=== PATIENT | male | born 2000 | race Caucasian/White ===

== ENCOUNTER 2019-08-07 02:13 | Emergency (ER) | payer SELFPAY ==
[~2019-08-07 02:13] MED LIST: MIDAZOLAM HCL 2 MG/2 ML INJ ONE; NA CHLORIDE 0.9% 1,000 ML ONE; ROCURONIUM 50 MG/5 ML VIAL IV ONE; RSI MEDICATION KIT IV ONE; propofoL 1,000 MG/100 ML VIAL IV ONE
[2019-08-07] MEDS ORDERED: ETOMIDATE 20 MG/10 ML VIAL IV ONE (02:14)
[2019-08-07] MEDS ORDERED: SUCCINYLCHOLINE 20 MG/ML (10 ML) IV ONE (02:14)
[2019-08-07] MEDS ORDERED: ROCURONIUM 50 MG/5 ML VIAL IV ONE ×2 (02:20→03:24)
[2019-08-07 03:01] LABS: Absolute Lymphocytes (CBC) 2.2 K/uL (0.7-4.9); Basophils % 0.7 % (0-1.3); Lymphocytes % 23.3 % (15.3-44.8); MPV 7.9 fL (7.6-11.3)
[2019-08-07 03:12] LABS: Protime INR 0.93
[2019-08-07] MEDS ORDERED: NA CHLORIDE 0.9% 1,000 ML ONE (03:17)
[2019-08-07] MEDS ORDERED: FENTANYL CITR 100 MCG/2 ML ONE (03:24)
[2019-08-07 03:30] LABS: ALT/SGPT 65 U/L (12-78); AST/SGOT 50 U/L (15-37); Albumin 3.8 g/dL (3.4-5.0); Alkaline Phosphatase 128 U/L (45-117); BUN Blood Urea Nitrogen 14 mg/dL (7-18); Bicarbonate 22 mmol/L (21-32); Bilirubin Direct 0.1 mg/dL (0-0.2); Bilirubin Total 0.2 mg/dL (0.2-1.0); Glucose Level 146 mg/dL (74-106); Potassium 3.5 mmol/L (3.5-5.1); Protein, Total 7.4 g/dL (6.4-8.2); Sodium Level 142 mmol/L (136-145)
[2019-08-07 03:57] LABS: Urine Blood NEGATIVE (NEG); Urine Glucose NEGATIVE (NEG); Urine Protein NEGATIVE (NEG)
[2019-08-07 04:02] LABS: Barbiturates NEGATIVE (NEGATIVE); Benzodiazepines NEGATIVE (NEGATIVE); Cocaine NEGATIVE (NEGATIVE); METHAMPHETAM NEGATIVE (NEGATIVE); Methadone NEGATIVE (NEGATIVE); Opiates NEGATIVE (NEGATIVE); Phencyclidine NEGATIVE (NEGATIVE); THC Cannibis NEGATIVE (NEGATIVE)
--- NOTE | 2019-08-07 07:12 | EDPHYS ---
Physician Documentation [facility] Name: Tao Cintron Age: 18 yrs Sex: Male : 2000 Arrival Date: 08/07/2019 Time: 02:15 Bed 3 Private MD: ED Physician Maverick Mccartney HPI: 08/07 02:40 This 18 yrs old Male presents to ER via Unassigned with complaints of Head kdr Injury-Adult. 05:20 This 18 yrs old Male presents to ER via EMS with complaints of Head kdr Injury-Adult. 02:40 The patient or guardian reports abrasion, deformity, injury, pain, swelling, kdr tenderness. The complaints affect the forehead, right ear, right restorationism, right frontal area, right side of forehead and right eye. Context of injury: The problem was sustained at At an apartment complex on the third floor. He was reported by PD to have been banging his head on the door of an apartment that apparently was not his. It was unknown how long he had been doing this. Onset: The symptoms/episode began/occurred at an unknown time. Associated signs and symptoms:. Severity of symptoms: At their worst the symptoms were moderate, severe, incapacitating. 05:20 It is unknown whether or not the patient has had similar symptoms in the past. It is kdr unknown whether or not the patient has recently seen a physician. - Immunization history:: Adult Immunizations unknown. - Ebola Screening: : No symptoms or risks identified at this time. - Social history:: Smoking status: unknown. ROS: 05:20 Constitutional: Unable to assess kdr 05:20 Unable to obtain ROS due to obtunded state. Exam: 05:20 Constitutional: This is a well developed, well nourished patient who is awake, very kdr aggitated and verbally abusive/loud. He does not respond to most general questions about his current state but does state his name. Otherwise, he he mostly shouting 05:20 Neck: Trachea midline, no thyromegaly or masses palpated, and no cervical lymphadenopathy. Supple, full range of motion without nuchal rigidity, or vertebral point tenderness. No Meningismus. Chest/axilla: Normal chest wall appearance and motion. Nontender with no deformity. No lesions are appreciated. Cardiovascular: Regular rate and rhythm with a normal S1 and S2. No gallops, murmurs, or rubs. Normal PMI, no JVD. No pulse deficits. Respiratory: Lungs have equal breath sounds bilaterally, clear to auscultation and percussion. No rales, rhonchi or wheezes noted. No increased work of breathing, no retractions or nasal flaring. Abdomen/GI: Soft, non-tender, with normal bowel sounds. No distension or tympany. No guarding or rebound. No evidence of tenderness throughout. Back: No spinal tenderness. No costovertebral tenderness. Full range of motion. Skin: Warm, dry with normal turgor. Normal color with no rashes, no lesions, and no evidence of cellulitis. MS/ Extremity: Pulses equal, no cyanosis. Neurovascular intact. Full, normal range of motion. 05:20 Head/face: Noted is abrasion(s), that are moderate, of the forehead, right eye, right cheek, right ear, right restorationism, right frontal area, right temporal area and right side of forehead. 05:20 Neuro: The patient appears to be under the influence of mind altering substances. It is unclear what he may have been exposed to.. Vital Signs: 02:15 BP 125 / 84; Pulse 102; Resp 20; Pulse Ox 100% on R/A; Weight 106.59 kg; lp1 02:20 BP 127 / 81; Pulse 105; Resp 21; Pulse Ox 100% on BVM; lp1 02:45 BP 152 / 90; Pulse 122; Resp 15; Pulse Ox 100% on ETT vent; lp1 03:00 BP 138 / 80; Pulse 112; Resp 20; Temp 96.1(C); Pulse Ox 100% on 60% FiO2 ETT vent; lp1 03:46 BP 99 / 45; Pulse 88; Resp 15; Temp 97; Pulse Ox 100% on ETT vent; ea 04:50 BP 110 / 65; Pulse 92; Resp 18; Pulse Ox 100% on ETT vent; ea 05:55 BP 108 / 60; Pulse 92; Resp 18; Temp 97.9; Pulse Ox 100% on ETT vent; ea Aurora Coma Score: 02:20 Eye Response: spontaneous(4). Verbal Response: confused(4). Motor Response: localizes lp1 pain(5). Total: 13. 02:40 Eye Response: spontaneous(4). Verbal Response: inappropriate words(3). Motor Response: kdr localizes pain(5). Total: 12. Procedures: 05:20 Intubation: Ventilated with 100% NRB prior to procedure. O2 saturation prior to kdr procedure was 100 %. Intubated orally using # 3 Rose blade with 7.5 mm ETT. was successful on first attempt. Ventilated with Ambu bag. Tube secured with ETT lares Placement verified by CXR, CO2 detector with (+) color change, auscultating bilateral breath sounds, O2 saturation after procedure was 95 %. Patient tolerated well. MDM: 05:20 Data reviewed: vital signs, nurses notes, lab test result(s), EKG, radiologic studies. kdr ED course: Due to the patient's agitated state, he was proactively intubated to protect himself, the staff and to allow for the safe and expeditious testing including CT scan. 07:10 Patient medically screened. kdr 07:11 ED course: The patient was extubated without difficulty or complication. He continues kdr to be uncooperative with staff. [employer] was contacted since the patient was unable to give any contact/family information. Once the PD arrived, the patient was considerably more awake and cooperative.. 08/07 02:18 Order name: Acetaminophen lp08/07 02:18 Order name: BMP lp08/07 02:18 Order name: CBC with Diff lp08/07 02:18 Order name: Ethanol lp08/07 02:18 Order name: Hepatic Function lp1 08/07 02:18 Order name: Protime (+inr) lp1 08/07 02:18 Order name: CT Head C Spine lp08/07 02:18 Order name: Ptt, Activated lp08/07 02:18 Order name: Salicylate lp1 08/07 02:18 Order name: Urine Drug Screen lp08/07 02:27 Order name: Chest Single View XRAY snw 08/07 03:32 Order name: Urine Dipstick--Ancillary (enter results) ar5 08/07 02:18 Order name: Intubation Setup; Complete Time: 03:13 lp1 08/07 02:18 Order name: EKG; Complete Time: 02:19 lp1 08/07 02:18 Order name: EKG - Nurse/Tech; Complete Time: 04:27 lp1 01 02:18 Order name: IV Saline Lock; Complete Time: 03:13 08/07 02:18 Order name: Labs collected and sent; Complete Time: 03:13 08/07 02:18 Order name: O2 Per Protocol; Complete Time: 03:13 08/07 02:18 Order name: O2 Sat Monitoring; Complete Time: 03:13 08/07 02:18 Order name: Urine Dipstick-Ancillary (obtain specimen); Complete Time: 03:13 08/07 02:18 Order name: Nash; Complete Time: 03:13 lp08/07 02:18 Order name: NG Tube; Complete Time: 03:13 lp1 Administered Medications: 02:11 Drug: Etomidate 20 mg Route: IVP; Site: right antecubital; lp1 02:15 Follow up: Response: No adverse reaction lp1 02:11 Drug: Succinylcholine 100 mg Route: IVP; Site: right antecubital; lp1 02:15 Follow up: Response: No adverse reaction lp1 02:12 Drug: NS 0.9% 1000 ml Route: IV; Rate: 1000 ml; Site: right antecubital; lp1 03:17 Follow up: IV Status: Completed infusion; IV Intake: 1000ml lp1 02:14 Drug: Rocuronium 50 mg Route: IVP; Site: right antecubital; lp1 02:15 Follow up: Response: No adverse reaction lp1 03:17 Drug: NS 0.9% 1000 ml Route: IV; Rate: 125 ml/hr; Site: right antecubital; lp1 03:30 Drug: Rocuronium 50 mg Route: IVP; Site: left antecubital; ea 03:45 Follow up: Response: No adverse reaction ea 03:31 Drug: fentaNYL (PF) 50 mcg Route: IVP; Site: left antecubital; ea 03:45 Follow up: Response: No adverse reaction ea Disposition: 08/07/19 07:10 Discharged to Home. Impression: Other specified injuries of head, Unspecified injury of head, Right facial abrasion/contusion, Alcohol intoxication. - Condition is Stable. - Discharge Instructions: Alcohol Intoxication, [id number], Contusion, Rxty-mr-Bgei, Abrasion, Iuiu-xa-Nwwg, Head Injury, Adult, Keud-tw-Owgj. - Medication Reconciliation Form, Thank You Letter form. - Follow up: Private Physician; When: 2 - 3 days; Reason: If symptoms return, Further diagnostic work-up, Recheck today's complaints, Continuance of care, Re-evaluation by your physician. - Problem is new. - Symptoms have improved. Signatures: Dispatcher [employer] EDMS Maverick Mccartney MD MD [facility] Anjali Garduno RN RN lp1 Cindy Rodriguez RN RN Karolina Hollis RN RN ea Corrections: (The following items were deleted from the chart) 05:21 02:40 Context of injury: The problem was sustained at At an apartment complex on the kdr third floor. He was reported by PF to have been banging his head on the door of an apartment that apparently was not his. It was unknown how long he had been doing this, kdr 07:25 07:10 08/07/2019 07:10 Discharged to Home. Impression: Other specified injuries of hb head; Unspecified injury of head; Right facial abrasion/contusion, Alcohol intoxication. Condition is Stable. Forms are Medication Reconciliation Form, Thank You Letter, Antibiotic Education, Prescription Opioid Use. Follow up: Private Physician; When: 2 - 3 days; Reason: If symptoms return, Further diagnostic work-up, Recheck today's complaints, Continuance of care, Re-evaluation by your physician. Problem is new. Symptoms have improved. kdr 07:25 07:25 08/07/2019 07:10 Discharged to Home. Impression: Other specified injuries of hb head; Unspecified injury of head; Right facial abrasion/contusion, Alcohol intoxication. Condition is Stable. Discharge Instructions: Alcohol Intoxication, Wwgx-kc-Bodw, Contusion, Oawz-iz-Guru, Abrasion, Fpqg-lk-Apkm, Head Injury, Adult, Tatc-gv-Zren. Forms are Medication Reconciliation Form, Thank You Letter. Follow up: Private Physician; When: 2 - 3 days; Reason: If symptoms return, Further diagnostic work-up, Recheck today's complaints, Continuance of care, Re-evaluation by your physician. Problem is new. Symptoms have improved. hb
--- NOTE | 2019-08-07 07:12 | ER ---
Nurse's Notes [facility] Name: Tao Cintron Age: 18 yrs Sex: Male : 2000 Arrival Date: 08/07/2019 Time: 02:15 Bed 3 Private MD: Diagnosis: Other specified injuries of head;Unspecified injury of head;Right facial abrasion/contusion, Alcohol intoxication Presentation: 08/07 02:20 Presenting complaint: EMS states: Called for patient who was banging head on door of 1 apartment; + ETOH; Patient combative with EMS, PD on scene, patient in handcuffs on arrival to ED; aggressive, yelling; abrasion to head noted. 02:20 Acuity: LISA 1 lp1 02:20 Method Of Arrival: EMS: [place] [id number] 02:20 Transition of care: patient was not received from another setting of care. Mechanism of lp1 Injury: resulted from Patient banging head on door. Onset of symptoms was August 07, 2019 at 01:00. Risk Assessment: Do you want to hurt yourself or someone else? Unable to obtain. Initial Sepsis Screen: Does the patient meet any 2 criteria? No. Patient's initial sepsis screen is negative. Does the patient have a suspected source of infection? No. Patient's initial sepsis screen is negative. Care prior to arrival: Bleeding of injury controlled. Injury dressed. Medication(s) given: Ativan 2 mg IM to R deltoid. Triage Assessment: 02:20 General: Appears. ea - Immunization history:: Adult Immunizations unknown. - Ebola Screening: : No symptoms or risks identified at this time. - Social history:: Smoking status: unknown. Screenin:12 Fall Risk Total Dash Fall Scale indicates High Risk Score (45 or more points). Fall lp1 prevention measures have been instituted. Side Rails Up X 2 Placed Close to Nursing Station Frequent Obs/Assessments Occuring As available patient and family educated on Fall Prevention Program and Strategies. 03:45 Abuse screen: Pt sedated and intubated unable to answer questions. Nutritional ea screening: Pt sedated and intubated. Tuberculosis screening: pt sedated and intubated. Assessment: 02:20 General: Appears in no apparent distress. Behavior is Pt sedated. Pain: Unable to use ea pain scale. FLACC scale score is 0 out of 10. Neuro: Level of Consciousness is sedated and intubated. Cardiovascular: Patient's skin is warm and dry. Respiratory: Airway via oral intubation Respiratory effort is even, Respiratory pattern is regular, Breath sounds are clear bilaterally. GI: Abdomen is non-distended. Derm: Skin is pink, warm \T\ dry. 02:25 Reassessment: Pt sedated and intubated, ETT in place respirations assisted, pt taken to ea CT via stretcher per nurse and resp tech. 03:57 General: Appears in no apparent distress. Behavior is Pt sedated and intubated. Neuro: ea Level of Consciousness is pt sedated and intubated. Cardiovascular: Patient's skin is warm and dry. Respiratory: Airway via oral intubation Respiratory effort is even, Respiratory pattern is regular, Breath sounds are clear bilaterally. Derm: Skin is pink, warm \T\ dry. 04:30 General: Appears in no apparent distress. Behavior is Pt sedated and intubated. Pain: ea Unable to use pain scale. FLACC scale score is 0 out of 10. Respiratory: Airway via oral intubation Pt ETT in place, respirations assisted. NG tube in place to low intermittent suction. Nash catheter in place to BSD. IV sites intact patent with fluids infusing, no erythema or edema noted. 05:53 Reassessment: PT sedated and intubated. ETT in place, respirations assisted. NG tube in ea place to low intermittent suction. Nash catheter to BSD. IV sites intact, patent with fluids infusing, no erythema or edema noted at this time. 06:25 Reassessment: Provider at bedside, pt extubated, pt tolerated well, able to swallow own ea secretions and deep cough. 06:46 Reassessment: Patient and/or family updated on plan of care and expected duration. Pain ea level reassessed. 07:07 Reassessment: Patient and/or family updated on plan of care and expected duration. Pain ea level reassessed. Patient is alert, oriented x 3, equal unlabored respirations, skin warm/dry/pink. PD at bedside, pt reports he does not have family or friends in town. Vital Signs: 02:15 BP 125 / 84; Pulse 102; Resp 20; Pulse Ox 100% on R/A; Weight 106.59 kg; lp1 02:20 BP 127 / 81; Pulse 105; Resp 21; Pulse Ox 100% on BVM; lp1 02:45 BP 152 / 90; Pulse 122; Resp 15; Pulse Ox 100% on ETT vent; lp1 03:00 BP 138 / 80; Pulse 112; Resp 20; Temp 96.1(C); Pulse Ox 100% on 60% FiO2 ETT vent; lp1 03:46 BP 99 / 45; Pulse 88; Resp 15; Temp 97; Pulse Ox 100% on ETT vent; ea 04:50 BP 110 / 65; Pulse 92; Resp 18; Pulse Ox 100% on ETT vent; ea 05:55 BP 108 / 60; Pulse 92; Resp 18; Temp 97.9; Pulse Ox 100% on ETT vent; ea Sonia Coma Score: 02:20 Eye Response: spontaneous(4). Verbal Response: confused(4). Motor Response: localizes lp1 pain(5). Total: 13. 02:40 Eye Response: spontaneous(4). Verbal Response: inappropriate words(3). Motor Response: kdr localizes pain(5). Total: 12. ED Course: 02:08 Inserted saline lock: 20 gauge in right antecubital area, using aseptic technique. lp1 Blood collected. By HARRIS Hampton. 02:12 Assisted provider with intubation using 7.5 mm ETT via oral route. ET tube secured at lp1 23cm at the teeth. Set up intubation tray. Intubated by Maverick Mccartney MD Placement verified by CXR, CO2 detector w/ + color change, auscultating bilateral breath sounds. 02:15 Patient arrived in ED. ds1 02:15 Patient has correct armband on for positive identification. Placed in gown. Bed in low lp1 position. Side rails up X2. cardiac monitor on. Pulse ox on. NIBP on. 02:21 Maverick Mccartney MD is Attending Physician. kdr 02:21 Triage completed. lp1 02:35 Chest Single View XRAY In Process Unspecified. EDMS 02:45 CT Head C Spine In Process Unspecified. EDMS 02:50 Nash cath inserted, using sterile technique, 16 Fr., by ga, balloon inflated, to lp1 gravity drainage. 02:50 NGT: inserted 14 Fr. via left nare. verified placement of air over stomach, verified lp1 return of gastric contents, to intermittent suction. Returned gastric contents. By HARRIS Turcios. 03:03 Arm band placed on. lp1 03:07 CT completed. Patient tolerated procedure well. Patient moved to CT via stretcher. Patient moved back from [place]. 03:45 Karolina Hollis RN is Primary Nurse. ea 04:28 EKG done, by ED staff, reviewed by Maverick Mccartney MD. ds4 07:12 IV discontinued, intact, bleeding controlled, No redness/swelling at site. Pressure ea dressing applied. Administered Medications: 02:11 Drug: Etomidate 20 mg Route: IVP; Site: right antecubital; lp1 02:15 Follow up: Response: No adverse reaction lp1 02:11 Drug: Succinylcholine 100 mg Route: IVP; Site: right antecubital; lp1 02:15 Follow up: Response: No adverse reaction lp1 02:12 Drug: NS 0.9% 1000 ml Route: IV; Rate: 1000 ml; Site: right antecubital; lp1 03:17 Follow up: IV Status: Completed infusion; IV Intake: 1000ml lp1 02:14 Drug: Rocuronium 50 mg Route: IVP; Site: right antecubital; lp1 02:15 Follow up: Response: No adverse reaction lp1 03:17 Drug: NS 0.9% 1000 ml Route: IV; Rate: 125 ml/hr; Site: right antecubital; lp1 03:30 Drug: Rocuronium 50 mg Route: IVP; Site: left antecubital; ea 03:45 Follow up: Response: No adverse reaction ea 03:31 Drug: fentaNYL (PF) 50 mcg Route: IVP; Site: left antecubital; ea 03:45 Follow up: Response: No adverse reaction ea Intake: 03:17 IV: 1000ml; Total: 1000ml. lp1 Outcome: 07:10 Discharge ordered by . kdr 07:21 Discharged to [employer] hb 07:21 Condition: stable 07:21 Instructed on discharge instructions. 07:25 Patient left the ED. hb Signatures: Dispatcher [employer] EDMS Maverick Mccartney MD MD kdr Hagler, Ervin Jacquie Putnam ds1 Anjali Garduno RN RN lp1 Barrera Aguilera ds4 iCndy Rodriguez RN RN Karolina Sanz RN RN lucy Corrections: (The following items were deleted from the chart) 03:03 02:20 Presenting complaint: EMS states: Called for patient who was banging head on door lp1 of apartment; + ETOH lp1 03:06 02:20 Care prior to arrival: Bleeding of injury controlled. Injury dressed. lp1 lp1
[2019-08-07 07:30] VITALS: O2SAT 100
[2019-08-07 07:38] VITALS: BP 108/60; TEMP 97.9
--- NOTE | 2019-08-07 08:24 | RAD REPORT ---
EXAM DESCRIPTION: RAD - Chest Single View - 08/07/2019 2:37 am CLINICAL HISTORY: Altered mental status, shortness of breath, intubation COMPARISON: None. TECHNIQUE: AP portable chest image was obtained 0234 hours . FINDINGS: No focal consolidation. Retrocardiac left base is limited in assessment. No diffuse pulmon irineo edema. Minimal atelectasis, aspiration infiltrate in the posterior gutter on the left cannot be e xcluded. Endotracheal tube tip is T3-4 level just above the aortic arch. Trachea is midline. Heart and vasculature are normal. No measurable pleural effusion and no pneumothorax. No acute bony abnormality seen. No acute aortic findings suspected. IMPRESSION: No acute cardiopulmonary process. ET tube is in good position. Retrocardiac left base assessment is more limited. Small focal infiltrate or area of aspiration canno t be excluded.
--- NOTE | 2019-08-08 11:14 | RAD REPORT ---
EXAM DESCRIPTION: CT - [id number] - 08/07/2019 6:44 am CLINICAL HISTORY: Head injury TECHNIQUE: Contiguous axial CT images obtained through the brain without IV contrast. Coronal and sa gittal reformatted images were provided. This exam was performed according to our departmental dose-optimization program, which includes autom ated exposure control, adjustment of the mA and/or kV according to patient size and/or use of iterati ve reconstruction technique. COMPARISON: None available for comparison FINDINGS: Brain: No significant white matter changes. No focal mass effect. Cotto-white matter differ entiation is within normal limits. No hemorrhage. Ventricles: Incidental note is made of cavum septum pellucida et vergae. No ventriculomegaly or midli ne shift. Extra-axial spaces: No extra-axial collection or hemorrhage. Paranasal sinuses and mastoid air cells: Well-aerated Vessels: Unremarkable Bones: Unremarkable Soft tissues: Moderate to large right frontal soft tissue contusion. IMPRESSION: No acute intracranial or extra-axial abnormality. EXAM DESCRIPTION: C Spine Wo Con CLINICAL HISTORY: Head injury TECHNIQUE: Contiguous axial CT images obtained through the cervical spine without IV contrast. Coron al and sagittal reformatted images also provided. This exam was performed according to our departmental dose-optimization program, which includes autom ated exposure control, adjustment of the mA and/or kV according to patient size and/or use of iterati ve reconstruction technique. COMPARISON: None available for comparison FINDINGS: Vertebra: No acute fracture or subluxation. Disc spaces: Intervertebral disc spaces are fairly well maintained. No critical canal stenosis. Krissy katie appear patent. Prevertebral soft tissues: Unremarkable Lung apices: Clear IMPRESSION: No acute injury. Electronically signed by: Ronaldo Brooks MD 08/07/2019 3:12 AM [employer] Due to temporary technical issues with the PACS/Fluency reporting system, reports are being signed by the in house radiologist as a courtesy to ensure prompt reporting. The interpreting radiologist is f ully responsible for the content of the report.
--- NOTE | 2019-08-13 16:47 | EKG ---
Test Date: 2018-08-07 Test Time: 04:24:43 Returned Goods Receiving Clerk: GEORGE MEASUREMENT RESULTS: Intervals: Rate: 100 MO: 174 QRSD: 88 QT: 332 QTc: 428 [place]: P: 70 MO: 174 QRS: 64 T: 40 INTERPRETIVE STATEMENTS: Normal sinus rhythm Early repolarization Normal ECG Cardioserver Error - Incorrect date on EKG This EKG was performed on 08-07-2019 No previous ECG available for comparison Electronically Signed On 08-13-19 16:41:59 CORRUGATOR by Agustin Gross
== END 2019-08-07 07:25 | disposition home or self-care (01) ==
LOC: ER 02:13 → EDBD 02:13 → ER 07:25
PROC: 0BH17EZ Insertion of Endotracheal Airway into Trachea, Via Natural or Artificial Opening (ICD-10-PCS; principal; 2019-08-07)
PROC: 5A1935Z Respiratory Ventilation, Less than 24 Consecutive Hours (ICD-10-PCS; 2019-08-07)
DX: S00.81XA Abrasion of other part of head, initial encounter (principal); F10.129 Alcohol abuse with intoxication, unspecified
CPT/HCPCS: 31500; 36415; 51702; 70450; 71045; 72125; 80048; 80076; 80307; 80320; 80329; 81003; 85025; 85610; 85730; 93005; 94002; 99291; 99292; J0330; J2250; J2704; J3010; J7030